=== PATIENT | female | born 1995 | race Caucasian/White ===

== ENCOUNTER 2020-08-11 14:47 | Outpatient (REF) | payer BC, SELFPAY | END 2020-08-11 14:48 | disposition home or self-care (01) | LOC: HO.LAB 14:47 | PROVIDERS: Visit Provider Internal Medicine | DX: Z20.828 Contact with and (suspected) exposure to other viral communicable diseases (principal) | CPT/HCPCS: C9803; U0003 ==

== ENCOUNTER 2021-08-23 14:08 | Outpatient (REF) | payer BC, MEDICAID, SELFPAY | END 2021-08-23 14:09 | disposition home or self-care (01) | LOC: HO.LNP 14:08 | PROVIDERS: Visit Provider Physician Assistant Medical | DX: J02.9 Acute pharyngitis, unspecified (principal) | CPT/HCPCS: 87071; 87147 ==